=== PATIENT | male | born 2000 | race Caucasian/White ===

== ENCOUNTER 2020-10-04 05:43 | Inpatient (IN) ==
--- NOTE | 2020-10-04 06:13 | Emergency Department Note ---
History of Present Illness General Chief complaint: Hyperglycemia Stated complaint: NAUSEA/VOMITING/HYPERGLYCEMIA Time Seen by Provider: 10/04/20 06:00 History of Present Illness Maximum Pain Intensity: 4 This is a 20-year-old type I diabetic that presents to the emergency department via ambulance with complaints of "nausea, vomiting, hyperglycemia ". The patient notes that he has been without insulin for the past 2 days. He states that the reason for this is secondary to issues with his insurance. He notes that last evening he was feeling okay but then began with vomiting. He notes that around 11 PM his first episode of vomiting occurred and then since then he has had 6 more episodes. In route BSG reported was 368. He was also given IV Zofran in route. Patient notes some cramping-like discomfort in the epigastric region secondary to vomiting. Patient denies any chest pain. He does feel mildly short of breath. No fevers or chills. Home Medications Medication Instructions Recorded Confirmed Type insulin lispro [Humalog U-100 See Rx Instructions .ROUTE .COMPLEX 11/16/19 10/04/20 History Insulin] Allergies Allergy/AdvReac Type Severity Reaction Status Date / Time No Known Allergies Allergy Mild Verified 10/04/20 08:02 Past Med/Surg History Medical History Diabetes type I Surgical History History of endoscopy Family History Grandfather (Maternal) Heart disease Hypertension Mother Multiple sclerosis Social History Smoking Status: Never smoker Tobacco Type: Smokeless Tobacco (Dip or Chew) Hx Alcohol Use: Yes (2 drinks/month) Preferred Language: [place] current occupational status: employed Feels Safe at Home: Yes Review of Systems A total of 10 systems reviewed and were otherwise negative Physical Exam Vital Signs Vital Signs - 24 hr 10/04/20 05:48 10/04/20 05:49 10/04/20 05:51 Temperature 36.6 C Temperature Source Oral Pulse Rate 126 H 131 H 125 H Pulse Rate [Apical] Pulse Rate from SpO2 Sensor 126 H 127 H Pulse Rhythm Regular Pulse Rhythm [Apical] Pulse Strength Normal Pulse Strength [Apical] Respiratory Rate 26 H 22 28 H Respiratory Effort / Characteristics Non-Labored Spontaneous Respiratory Depth Normal Respiratory Pattern Regular Blood Pressure 150/101 H 150/101 H Blood Pressure [Right Arm] Blood Pressure Mean 117 117 Blood Pressure Mean [Right Arm] Blood Pressure Position Lying Blood Pressure Position [Right Arm] Pulse Oximetry 99 98 100 Oxygen Delivery Method Room Air Sepsis Recent Fever Within 48 Hours No Sepsis New/Unexplained Change in Mental Status No Sepsis Action Taken by Nursing No Action Required 10/04/20 06:00 10/04/20 06:15 10/04/20 06:30 Temperature 36.6 C Temperature Source Oral Pulse Rate 135 H 131 H 134 H Pulse Rate [Apical] 131 H Pulse Rate from SpO2 Sensor 134 H Pulse Rhythm Regular Pulse Rhythm [Apical] Regular Pulse Strength Pulse Strength [Apical] Normal Respiratory Rate 28 H 22 26 H Respiratory Effort / Characteristics Spontaneous Respiratory Depth Normal Respiratory Pattern Rapid/Deep Blood Pressure Blood Pressure [Right Arm] 150/101 H Blood Pressure Mean Blood Pressure Mean [Right Arm] 117 Blood Pressure Position Blood Pressure Position [Right Arm] Lying Pulse Oximetry 98 99 99 Oxygen Delivery Method Room Air Room Air Sepsis Recent Fever Within 48 Hours Sepsis New/Unexplained Change in Mental Status Sepsis Action Taken by Nursing 10/04/20 06:36 10/04/20 07:00 10/04/20 08:01 Temperature Temperature Source Pulse Rate 137 H 150 H Pulse Rate [Apical] Pulse Rate from SpO2 Sensor 137 H 140 H Pulse Rhythm Pulse Rhythm [Apical] Pulse Strength Pulse Strength [Apical] Respiratory Rate 28 H 23 Respiratory Effort / Characteristics Respiratory Depth Respiratory Pattern Blood Pressure 140/72 Blood Pressure [Right Arm] Blood Pressure Mean 94 Blood Pressure Mean [Right Arm] Blood Pressure Position Blood Pressure Position [Right Arm] Pulse Oximetry 98 98 Oxygen Delivery Method Sepsis Recent Fever Within 48 Hours Sepsis New/Unexplained Change in Mental Status Sepsis Action Taken by Nursing 10/04/20 08:22 10/04/20 08:27 10/04/20 08:30 Temperature Temperature Source Pulse Rate 142 H 140 H 141 H Pulse Rate [Apical] Pulse Rate from SpO2 Sensor 142 H 140 H Pulse Rhythm Pulse Rhythm [Apical] Pulse Strength Pulse Strength [Apical] Respiratory Rate 27 H 24 28 H Respiratory Effort / Characteristics Respiratory Depth Respiratory Pattern Blood Pressure 153/90 H 154/86 H 148/102 H Blood Pressure [Right Arm] Blood Pressure Mean 111 108 117 Blood Pressure Mean [Right Arm] Blood Pressure Position Blood Pressure Position [Right Arm] Pulse Oximetry 100 100 Oxygen Delivery Method Sepsis Recent Fever Within 48 Hours Sepsis New/Unexplained Change in Mental Status Sepsis Action Taken by Nursing 10/04/20 09:00 10/04/20 09:30 10/04/20 10:00 Temperature Temperature Source Pulse Rate 141 H 156 H 146 H Pulse Rate [Apical] Pulse Rate from SpO2 Sensor 141 H 154 H 147 H Pulse Rhythm Pulse Rhythm [Apical] Pulse Strength Pulse Strength [Apical] Respiratory Rate 31 H 30 H 28 H Respiratory Effort / Characteristics Respiratory Depth Respiratory Pattern Blood Pressure 152/84 H 132/94 114/91 Blood Pressure [Right Arm] Blood Pressure Mean 106 106 98 Blood Pressure Mean [Right Arm] Blood Pressure Position Blood Pressure Position [Right Arm] Pulse Oximetry 100 100 100 Oxygen Delivery Method Sepsis Recent Fever Within 48 Hours Sepsis New/Unexplained Change in Mental Status Sepsis Action Taken by Nursing 10/04/20 10:21 Temperature 36.6 C Temperature Source Oral Pulse Rate 146 H Pulse Rate [Apical] Pulse Rate from SpO2 Sensor Pulse Rhythm Pulse Rhythm [Apical] Pulse Strength Pulse Strength [Apical] Respiratory Rate 28 H Respiratory Effort / Characteristics Respiratory Depth Respiratory Pattern Blood Pressure 114/91 Blood Pressure [Right Arm] Blood Pressure Mean Blood Pressure Mean [Right Arm] Blood Pressure Position Blood Pressure Position [Right Arm] Pulse Oximetry 100 Oxygen Delivery Method Room Air Sepsis Recent Fever Within 48 Hours Sepsis New/Unexplained Change in Mental Status Sepsis Action Taken by Nursing VITAL SIGNS - Vital signs and nursing notes were reviewed. Tachycardic, otherwise stable. GENERAL -20-year-old male appearing his stated age who is in no acute distress but does have an increased respiratory rate and appears dehydrated. Communicates well with provider and answers questions appropriately. SKIN - Without rashes. No meningeal or petechial rash. HEAD - NC/AT. EYES - PERRL with EOMI bilaterally. Sclera anicteric. EARS - No deformities of external structures noted on gross examination bila terally. NOSE - Midline and without cyanosis. No epistaxis or purulent drainage noted. MOUTH/OROPHARYNX - Without perioral cyanosis. NECK - Neck with FROM. No nuchal rigidity. LUNGS - Chest wall symmetric without accessory muscle use, intercostals retractions, or central cyanosis. Mildly increased rate of breathing noted. Normal vesicular breath sounds CTA B/L. No wheezes, rales, or rhonchi appreciated. CARDIAC -tachycardic with S1/S2. No murmur, rubs, or gallops appreciated. ABDOMEN - Abdominal contour normal without pulsations or visible masses. BS normoactive all four quadrants. No tenderness, palpable masses, hepatosplenomegaly, or ascites noted. EXTREMITIES - No clubbing or peripheral cyanosis. No pretibial edema present. +5/5 strength noted in UE/LE bilaterally. NEUROLOGIC - Cranial nerves II through XII grossly intact. PSYCH - A&O, and cooperates fully with examiner. Pt is very pleasant and interacts well with examiner. Course Administered Medications Insulin Human Regular 250 (units/ Sodium Chloride) 250 mls @ 6.4 mls/hr IV .Q24H PA; Protocol Stop: 11/03/20 07:44 Last Titration: 10/04/20 09:45 Dose: 7.7 units/hr, 7.7 mls/hr Documented by: [id number] Cosigned by: [id number] Admin: 10/04/20 08:11 Dose: 6.4 units/hr, 6.4 mls/hr Documented by: [id number] Cosigned by: [id number] Parenteral Electrolytes (Normosol-R) 1,000 mls @ 125 mls/hr IV .Q8H PA Stop: 11/03/20 07:44 Last Admin: 10/04/20 08:10 Dose: 125 mls/hr Documented by: [id number] Discontinued Medications Sodium Chloride (Nss 1000ml) 1,000 mls @ 999 mls/hr IV .Q1H1M PA Stop: 10/04/20 07:15 Last Infusion: 10/04/20 07:15 Dose: 0 mls/hr Documented by: [id number] Admin: 10/04/20 06:14 Dose: 999 mls/hr Documented by: [id number] Sodium Chloride (Nss 1000ml) 1,000 mls @ 999 mls/hr IV .Q1H1M PA Stop: 10/04/20 09:30 Last Infusion: 10/04/20 09:10 Dose: 0 mls/hr Documented by: [id number] Admin: 10/04/20 08:09 Dose: 999 mls/hr Documented by: [id number] Lactated Ringer's (Lr) 1,000 mls @ 999 mls/hr IV .Q1H1M ONE Stop: 10/04/20 09:59 Last Admin: 06/17/21 09:29 Dose: 999 mls/hr Documented by: [id number] Insulin Human Regular (Novolin-R Bolus From Bag) 6.4 units IV ONE ONE Stop: 10/04/20 08:16 Last Admin: 10/04/20 08:12 Dose: 6.4 units Documented by: [id number] Cosigned by: [id number] Miscellaneous (Insulin Protocol Goal Range ) 1 ea N/A ONE ONE Stop: 10/04/20 07:42 Last Admin: 10/04/20 10:02 Dose: Not Given Documented by: [id number] Ondansetron HCl (Ondansetron Inj 2 Mg/Ml 2 Ml Vial) 4 mg IV NOW STA Stop: 10/04/20 06:57 Last Admin: 10/04/20 07:12 Dose: 4 mg Documented by: [id number] Ondansetron HCl (Ondansetron Inj 2 Mg/Ml 2 Ml Vial) 4 mg IV NOW STA Stop: 10/04/20 08:17 Last Admin: 10/04/20 08:09 Dose: 4 mg Documented by: [id number] Sodium Bicarbonate (Sodium Bicarb 8.4% Inj 50 Meq/50 Ml Syr) 50 meq IV NOW STA Stop: 10/04/20 09:04 Last Admin: 10/04/20 09:25 Dose: 50 meq Documented by: [id number] Critical Care Time Total Critical Care Time: 75 I have personally spent greater than 75 minutes of critical care time in the direct management of this patient. This includes bedside care, interpretation of diagnostic studies, and testing, discussion with consultants, patient, and family members, and other required patient management activities. This 75 minutes is in excess of all separately billable procedures. Medical Decision Making Laboratory Data Result diagrams: 10/04/20 06:45 10/04/20 08:22 Lab Results 10/04/20 10/04/20 10/04/20 Range/Units 05:52 05:55 06:19 WBC (4.8-10.8) K/uL RBC (4.7-6.1) M/uL Hgb (14.0-18.0) g/dL Hct (42-52) % MCV (80-100) fL MCH (25-34) pg MCHC (32-36) g/dL RDW Std Deviation (36.4-46.3) fL RDW Coeff of Patti (11.5-14.5) % Plt Count (130-400) K/uL MPV (7.4-10.4) fL Immature Gran % (Auto) % Neut % (Auto) % Lymph % (Auto) % [place] % (Auto) % Eos % (Auto) % Baso % (Auto) % Neut # (Auto) (1.4-6.5) K/uL Lymph # (Auto) (1.2-3.4) K/uL [place] # (Auto) (0.11-0.59) K/uL Eos # (Auto) (0-0.5) K/uL Baso # (Auto) (0-0.2) K/uL Immature Gran # (Auto) (0.00-0.02) K/uL ABG pH (7.35-7.45) ABG pCO2 (35-46) mmHg ABG pO2 (80-95) mmHg ABG HCO3 (19-24) mmol/L ABG O2 Saturation (90-95) % ABG Base Excess (-9-1.8) mEq/L Andrade Test (Pos) VBG pH (7.36-7.41) VBG pCO2 (38-50) mmHg VBG pO2 mmHg VBG HCO3 mmol/L VBG O2 Saturation % VBG Base Excess mEq/L Barometric Pressure mm/Hg Oxygen Given Sodium (136-145) mmol/L Potassium (3.5-5.1) mmol/L Chloride (98-107) mmol/L Carbon Dioxide (21-32) mmol/L Anion Gap (3-11) BUN (7-18) mg/dl Creatinine (0.6-1.4) mg/dl Est Cr Clr Drug Dosing ml/min Est GFR ( Amer) ml/min Est GFR (Non-Af Amer) ml/min BUN/Creatinine Ratio (10-20) Glucose (70-99) mg/dl POC Glucose 580 H* > 600 H* (70-99) mg/dl Lactate (0.4-2.0) mmol/L Calcium (8.5-10.1) mg/dl Phosphorus (2.5-4.9) mg/dl Magnesium (1.8-2.4) mg/dl Total Bilirubin (0.2-1) mg/dl AST (15-37) U/L ALT (12-78) U/L Alkaline Phosphatase (45-117) U/L Total Protein (6.4-8.2) gm/dl Albumin (3.4-5.0) gm/dl Globulin (2.5-4.0) gm/dl Albumin/Globulin Ratio (0.9-2) Lipase (73-393) U/L Beta-Hydroxybutyric Acd (0.2-2.81) mg/dl Procalcitonin (0-0.5) ng/ml Specimen Hemolysis Urine Color Urine Appearance (Clear) Urine pH (4.5-7.5) Ur Specific [place] (1.000-1.030) Urine Protein (Negative) Urine Glucose (UA) (Negative) Urine Ketones (Negative) Urine Blood (Negative) Urine Nitrite (Negative) Urine Bilirubin (Negative) Urine Urobilinogen (Negative) Ur Leukocyte Esterase (Negative) COVID-19 Eval Order Covid19 at [facility] SARS-CoV-2 (PCR) (Negative) 10/04/20 10/04/20 10/04/20 Range/Units 06:19 06:45 06:45 WBC 13.25 H (4.8-10.8) K/uL RBC 4.27 L (4.7-6.1) M/uL Hgb 14.9 (14.0-18.0) g/dL Hct 44.8 (42-52) % MCV 104.9 H (80-100) fL MCH 34.9 H (25-34) pg MCHC 33.3 (32-36) g/dL RDW Std Deviation 51.1 H (36.4-46.3) fL RDW Coeff of Patti 13.3 (11.5-14.5) % Plt Count 375 (130-400) K/uL MPV 10.8 H (7.4-10.4) fL Immature Gran % (Auto) 0.4 % Neut % (Auto) 86.5 % Lymph % (Auto) 9.1 % [place] % (Auto) 3.8 % Eos % (Auto) 0.0 % Baso % (Auto) 0.2 % Neut # (Auto) 11.47 H (1.4-6.5) K/uL Lymph # (Auto) 1.20 (1.2-3.4) K/uL [place] # (Auto) 0.51 (0.11-0.59) K/uL Eos # (Auto) 0.00 (0-0.5) K/uL Baso # (Auto) 0.02 (0-0.2) K/uL Immature Gran # (Auto) 0.05 H (0.00-0.02) K/uL ABG pH (7.35-7.45) ABG pCO2 (35-46) mmHg ABG pO2 (80-95) mmHg ABG HCO3 (19-24) mmol/L ABG O2 Saturation (90-95) % ABG Base Excess (-9-1.8) mEq/L Andrade Test (Pos) VBG pH (7.36-7.41) VBG pCO2 (38-50) mmHg VBG pO2 mmHg VBG HCO3 mmol/L VBG O2 Saturation % VBG Base Excess mEq/L Barometric Pressure mm/Hg Oxygen Given Sodium 134 L (136-145) mmol/L Potassium 5.8 H (3.5-5.1) mmol/L Chloride 102 (98-107) mmol/L Carbon Dioxide 4 L* (21-32) mmol/L Anion Gap 27.0 H (3-11) BUN 21 H (7-18) mg/dl Creatinine 1.22 (0.6-1.4) mg/dl Est Cr Clr Drug Dosing 81.8 ml/min Est GFR ( Amer) 97.6 ml/min Est GFR (Non-Af Amer) 84.2 ml/min BUN/Creatinine Ratio 17.5 (10-20) Glucose 620 H* (70-99) mg/dl POC Glucose (70-99) mg/dl Lactate (0.4-2.0) mmol/L Calcium 7.5 L (8.5-10.1) mg/dl Phosphorus (2.5-4.9) mg/dl Magnesium 2.2 (1.8-2.4) mg/dl Total Bilirubin 0.6 (0.2-1) mg/dl AST 112 H (15-37) U/L ALT 107 H (12-78) U/L Alkaline Phosphatase 110 (45-117) U/L Total Protein 7.0 (6.4-8.2) gm/dl Albumin 3.7 (3.4-5.0) gm/dl Globulin 3.3 (2.5-4.0) gm/dl Albumin/Globulin Ratio 1.1 (0.9-2) Lipase 58 L (73-393) U/L Beta-Hydroxybutyric Acd (0.2-2.81) mg/dl Procalcitonin (0-0.5) ng/ml Specimen Hemolysis Urine Color Urine Appearance (Clear) Urine pH (4.5-7.5) Ur Specific [place] (1.000-1.030) Urine Protein (Negative) Urine Glucose (UA) (Negative) Urine Ketones (Negative) Urine Blood (Negative) Urine Nitrite (Negative) Urine Bilirubin (Negative) Urine Urobilinogen (Negative) Ur Leukocyte Esterase (Negative) COVID-19 Eval Order SARS-CoV-2 (PCR) NEGATIVE (Negative) 10/04/20 10/04/20 10/04/20 Range/Units 06:45 06:45 06:45 WBC (4.8-10.8) K/uL RBC (4.7-6.1) M/uL Hgb (14.0-18.0) g/dL Hct (42-52) % MCV (80-100) fL MCH (25-34) pg MCHC (32-36) g/dL RDW Std Deviation (36.4-46.3) fL RDW Coeff of Patti (11.5-14.5) % Plt Count (130-400) K/uL MPV (7.4-10.4) fL Immature Gran % (Auto) % Neut % (Auto) % Lymph % (Auto) % [place] % (Auto) % Eos % (Auto) % Baso % (Auto) % Neut # (Auto) (1.4-6.5) K/uL Lymph # (Auto) (1.2-3.4) K/uL [place] # (Auto) (0.11-0.59) K/uL Eos # (Auto) (0-0.5) K/uL Baso # (Auto) (0-0.2) K/uL Immature Gran # (Auto) (0.00-0.02) K/uL ABG pH (7.35-7.45) ABG pCO2 (35-46) mmHg ABG pO2 (80-95) mmHg ABG HCO3 (19-24) mmol/L ABG O2 Saturation (90-95) % ABG Base Excess (-9-1.8) mEq/L Andrade Test (Pos) VBG pH 7.09 L (7.36-7.41) VBG pCO2 22 L (38-50) mmHg VBG pO2 47 mmHg VBG HCO3 7 mmol/L VBG O2 Saturation 70.8 % VBG Base Excess -21.6 mEq/L Barometric Pressure 733.3 mm/Hg Oxygen Given Sodium (136-145) mmol/L Potassium (3.5-5.1) mmol/L Chloride (98-107) mmol/L Carbon Dioxide (21-32) mmol/L Anion Gap (3-11) BUN (7-18) mg/dl Creatinine (0.6-1.4) mg/dl Est Cr Clr Drug Dosing ml/min Est GFR ( Amer) ml/min Est GFR (Non-Af Amer) ml/min BUN/Creatinine Ratio (10-20) Glucose (70-99) mg/dl POC Glucose (70-99) mg/dl Lactate 2.4 H* (0.4-2.0) mmol/L Calcium (8.5-10.1) mg/dl Phosphorus (2.5-4.9) mg/dl Magnesium (1.8-2.4) mg/dl Total Bilirubin (0.2-1) mg/dl AST (15-37) U/L ALT (12-78) U/L Alkaline Phosphatase (45-117) U/L Total Protein (6.4-8.2) gm/dl Albumin (3.4-5.0) gm/dl Globulin (2.5-4.0) gm/dl Albumin/Globulin Ratio (0.9-2) Lipase (73-393) U/L Beta-Hydroxybutyric Acd (0.2-2.81) mg/dl Procalcitonin 0.09 (0-0.5) ng/ml Specimen Hemolysis Urine Color Urine Appearance (Clear) Urine pH (4.5-7.5) Ur Specific [place] (1.000-1.030) Urine Protein (Negative) Urine Glucose (UA) (Negative) Urine Ketones (Negative) Urine Blood (Negative) Urine Nitrite (Negative) Urine Bilirubin (Negative) Urine Urobilinogen (Negative) Ur Leukocyte Esterase (Negative) COVID-19 Eval Order SARS-CoV-2 (PCR) (Negative) 10/04/20 10/04/20 10/04/20 Range/Units 06:59 08:22 08:22 WBC (4.8-10.8) K/uL RBC (4.7-6.1) M/uL Hgb (14.0-18.0) g/dL Hct (42-52) % MCV (80-100) fL MCH (25-34) pg MCHC (32-36) g/dL RDW Std Deviation (36.4-46.3) fL RDW Coeff of Patti (11.5-14.5) % Plt Count (130-400) K/uL MPV (7.4-10.4) fL Immature Gran % (Auto) % Neut % (Auto) % Lymph % (Auto) % [place] % (Auto) % Eos % (Auto) % Baso % (Auto) % Neut # (Auto) (1.4-6.5) K/uL Lymph # (Auto) (1.2-3.4) K/uL [place] # (Auto) (0.11-0.59) K/uL Eos # (Auto) (0-0.5) K/uL Baso # (Auto) (0-0.2) K/uL Immature Gran # (Auto) (0.00-0.02) K/uL ABG pH 7.05 L* (7.35-7.45) ABG pCO2 12 L (35-46) mmHg ABG pO2 132 H (80-95) mmHg ABG HCO3 3 L (19-24) mmol/L ABG O2 Saturation 98.1 H (90-95) % ABG Base Excess -25.1 L (-9-1.8) mEq/L Andrade Test Pos (Pos) VBG pH (7.36-7.41) VBG pCO2 (38-50) mmHg VBG pO2 mmHg VBG HCO3 mmol/L VBG O2 Saturation % VBG Base Excess mEq/L Barometric Pressure 733.8 mm/Hg Oxygen Given RA Sodium 138 (136-145) mmol/L Potassium 4.9 D (3.5-5.1) mmol/L Chloride 108 H (98-107) mmol/L Carbon Dioxide < 1 L* (21-32) mmol/L Anion Gap TNP (3-11) BUN 24 H (7-18) mg/dl Creatinine 1.13 (0.6-1.4) mg/dl Est Cr Clr Drug Dosing 88.3 ml/min Est GFR ( Amer) 107.1 ml/min Est GFR (Non-Af Amer) 92.4 ml/min BUN/Creatinine Ratio 21.4 H (10-20) Glucose 613 H* (70-99) mg/dl POC Glucose (70-99) mg/dl Lactate (0.4-2.0) mmol/L Calcium 7.5 L (8.5-10.1) mg/dl Phosphorus 4.8 (2.5-4.9) mg/dl Magnesium (1.8-2.4) mg/dl Total Bilirubin (0.2-1) mg/dl AST (15-37) U/L ALT (12-78) U/L Alkaline Phosphatase (45-117) U/L Total Protein (6.4-8.2) gm/dl Albumin (3.4-5.0) gm/dl Globulin (2.5-4.0) gm/dl Albumin/Globulin Ratio (0.9-2) Lipase (73-393) U/L Beta-Hydroxybutyric Acd Cancelled (0.2-2.81) mg/dl Procalcitonin (0-0.5) ng/ml Specimen Hemolysis Urine Color Yellow Urine Appearance Clear (Clear) Urine pH 5.0 (4.5-7.5) Ur Specific [place] 1.027 (1.000-1.030) Urine Protein Negative (Negative) Urine Glucose (UA) 3+ H (Negative) Urine Ketones 4+ H (Negative) Urine Blood Negative (Negative) Urine Nitrite Negative (Negative) Urine Bilirubin Negative (Negative) Urine Urobilinogen Negative (Negative) Ur Leukocyte Esterase Negative (Negative) COVID-19 Eval Order SARS-CoV-2 (PCR) (Negative) 10/04/20 Range/Units 09:12 WBC (4.8-10.8) K/uL RBC (4.7-6.1) M/uL Hgb (14.0-18.0) g/dL Hct (42-52) % MCV (80-100) fL MCH (25-34) pg MCHC (32-36) g/dL RDW Std Deviation (36.4-46.3) fL RDW Coeff of Patti (11.5-14.5) % Plt Count (130-400) K/uL MPV (7.4-10.4) fL Immature Gran % (Auto) % Neut % (Auto) % Lymph % (Auto) % [place] % (Auto) % Eos % (Auto) % Baso % (Auto) % Neut # (Auto) (1.4-6.5) K/uL Lymph # (Auto) (1.2-3.4) K/uL [place] # (Auto) (0.11-0.59) K/uL Eos # (Auto) (0-0.5) K/uL Baso # (Auto) (0-0.2) K/uL Immature Gran # (Auto) (0.00-0.02) K/uL ABG pH (7.35-7.45) ABG pCO2 (35-46) mmHg ABG pO2 (80-95) mmHg ABG HCO3 (19-24) mmol/L ABG O2 Saturation (90-95) % ABG Base Excess (-9-1.8) mEq/L Andrade Test (Pos) VBG pH (7.36-7.41) VBG pCO2 (38-50) mmHg VBG pO2 mmHg VBG HCO3 mmol/L VBG O2 Saturation % VBG Base Excess mEq/L Barometric Pressure mm/Hg Oxygen Given Sodium (136-145) mmol/L Potassium (3.5-5.1) mmol/L Chloride (98-107) mmol/L Carbon Dioxide (21-32) mmol/L Anion Gap (3-11) BUN (7-18) mg/dl Creatinine (0.6-1.4) mg/dl Est Cr Clr Drug Dosing ml/min Est GFR ( Amer) ml/min Est GFR (Non-Af Amer) ml/min BUN/Creatinine Ratio (10-20) Glucose (70-99) mg/dl POC Glucose 423 H* (70-99) mg/dl Lactate (0.4-2.0) mmol/L Calcium (8.5-10.1) mg/dl Phosphorus (2.5-4.9) mg/dl Magnesium (1.8-2.4) mg/dl Total Bilirubin (0.2-1) mg/dl AST (15-37) U/L ALT (12-78) U/L Alkaline Phosphatase (45-117) U/L Total Protein (6.4-8.2) gm/dl Albumin (3.4-5.0) gm/dl Globulin (2.5-4.0) gm/dl Albumin/Globulin Ratio (0.9-2) Lipase (73-393) U/L Beta-Hydroxybutyric Acd (0.2-2.81) mg/dl Procalcitonin (0-0.5) ng/ml Specimen Hemolysis Urine Color Urine Appearance (Clear) Urine pH (4.5-7.5) Ur Specific [place] (1.000-1.030) Urine Protein (Negative) Urine Glucose (UA) (Negative) Urine Ketones (Negative) Urine Blood (Negative) Urine Nitrite (Negative) Urine Bilirubin (Negative) Urine Urobilinogen (Negative) Ur Leukocyte Esterase (Negative) COVID-19 Eval Order SARS-CoV-2 (PCR) (Negative) [facility] Narrative Patient was seen and evaluated as above in room A03. Review was performed of n meñoing notes and vital signs. I did review pertinent previous visits and patient history. After obtaining a thorough history and physical examination the above work up was performed. Patient presents to us today with nausea, vomiting and elevated blood sugar with history of type 1 diabetes. He has not had insulin for 2 days. The patient notes that he has been without insulin secondary to troubles with prior authorization with his insurance company. Options of care were discussed with the patient. IV access established. Labs were drawn. IV fluids were ordered. He did receive 1 L prehospital of normal saline intravenously. An additional liter was ordered here during the work-up. Case discussed with the attending physician that also evaluated the patient. Leukocytosis 13.25 noted without significant anemia. Patient does have significant metabolic disturbances. The patient has a carbon dioxide of 4 with an anion gap of 27. Hyperkalemia noted. Glucose in the 600s. Lactate elevated at 2.4. Hypocalcemia 7.5. LFT elevation noted. Pro-Ji within normal range. Urinalysis reveals 4+ ketones and 3+ glucose. Covid testing negative. EKG was also obtained on arrival and revealed sinus tachycardia rate of [address] elevation noted. QTc 466. QRS 86. After the second liter fluid a third liter of normal saline was started and at that point the the insulin bolus/drip was initiated. I discussed presentation with the hospitalist as well as the commercial account officer. I spoke with Dr. De Leon. Repeat BMP was ordered as well as fourth liter of fluids recommended by commercial account officer but it was recommended to switch to LR or Normosol. LR was ordered. I did call him back with a repeat BMP and at that point the patient had a carbon dioxide less than 1. At that point it was recommended to give an amp of bicarb. This was ordered. Did call and speak to pharmacy to verify this. Patient was producing urine without difficulty. Patient will be admitted to the ICU for further evaluation and management. Please refer to further documentation regarding his stay for treatment of his DKA. Case was discussed with the attending physician. An order was placed for continuous cardiac monitoring. The monitor shows a rate of 146 sinus tachycardia. GCS: 15 In the evaluation and treatment of this patient the following differential diagnoses were entertained: DKA, infection, electrolyte disturbance, NV, PE, COVID-19, among others. Impression & Plan DKA (diabetic ketoacidoses) Discharge Plan Visit Data Chief Complaint: Hyperglycemia Stated Complaint: NAUSEA/VOMITING/HYPERGLYCEMIA ED Provider: Leila Berger ED Midlevel Provider: Phill Bales Discharge Problem: DKA (diabetic ketoacidoses) Patient Disposition: Home - Self-Care Condition: Good Discharge Instructions Interventions: ED Discharge Assessment Last Done: 10/04/20 10:21 Forms Stand Alone Forms: [facility], [facility] Emergency Department, Important Visit Information Prescriptions Prescriptions: No Action insulin lispro [Humalog U-100 Insulin] 100 unit/mL solution See Rx Instructions .ROUTE .COMPLEX RF: 0 Referrals Referrals: Kashmir Herr DO [Primary Care Provider] -
[2020-10-04] MEDS ORDERED: SODIUM CHLORIDE 0.9% 1000ML 1,000 ML IV SCH ×2 (06:15→08:30)
[2020-10-04] MEDS ORDERED: ONDANSETRON INJ 2 MG/ML 2 ML VIAL IV STA ×2 (06:56→08:16)
[2020-10-04 06:58] LABS: Basophils # (auto) 0.02 K/uL (0-0.2); Basophils % (auto) 0.2 %; Hematocrit (blood only) 44.8 % (42-52); Hemoglobin 14.9 g/dL (14.0-18.0); Immature Granulocytes # (auto) 0.05 K/uL (0.00-0.02); Immature Granulocytes % (auto) 0.4 %; Lymphocytes % (auto) 9.1 %; Mean Corpuscular Hemoglobin 34.9 pg (25-34); Mean Corpuscular Hgb Conc 33.3 g/dL (32-36); Mean Corpuscular Volume 104.9 fL (80-100); Mean Platelet Volume 10.8 fL (7.4-10.4); Monocytes # (auto) 0.51 K/uL (0.11-0.59); Monocytes % (auto) 3.8 %; Neutrophils # (auto) 11.47 K/uL (1.4-6.5); Neutrophils % (auto) 86.5 %; Platelet Count 375 K/uL (130-400); RDW Coefficient of Variation 13.3 % (11.5-14.5); RDW Standard Deviation 51.1 fL (36.4-46.3); Red Blood Count 4.27 M/uL (4.7-6.1); White Blood Count 13.25 K/uL (4.8-10.8)
[2020-10-04 07:07] LABS: Base Excess VBG -21.6 mEq/L; Oxygen Saturation VBG 70.8 %; pH VBG 7.09 (7.36-7.41)
[2020-10-04 07:35] LABS: Albumin Globulin Ratio 1.1 (0.9-2); Albumin Level 3.7 gm/dl (3.4-5.0); BUN Creatinine Ratio 17.5 (10-20); Bilirubin,Total 0.6 mg/dl (0.2-1); Calcium 7.5 mg/dl (8.5-10.1); Creatinine Clr Calc Pharmacy 81.8 ml/min; Est GFR (African American) 97.6 ml/min; Est GFR (Non-African American) 84.2 ml/min; Globulin 3.3 gm/dl (2.5-4.0); Magnesium 2.2 mg/dl (1.8-2.4); Potassium 5.8 mmol/L (3.5-5.1)
[2020-10-04] MEDS ORDERED: INSULIN PROTOCOL GOAL RANGE ONE (07:41)
[2020-10-04] MEDS ORDERED: NORMOSOL-R 1,000 ML IV SCH (07:45)
[2020-10-04 07:47] LABS: Appearance Urine Clear (Clear); Bilirubin Urine Negative (Negative); Blood Urine Negative (Negative); Color Urine Yellow; Glucose Urine UA 3+ (Negative); Ketones Urine 4+ (Negative); Leukocyte Esterase Urine Negative (Negative); Nitrite Urine Negative (Negative); Protein Urine Negative (Negative); Specific Gravity Urine 1.027 (1.000-1.030); Urobilinogen Urine Negative (Negative)
[2020-10-04] MEDS: INSULIN REGULAR 250 UNITS in SODIUM CHLORIDE 0.9% 247.5 ML IV SCH (08:11)
[2020-10-04] MEDS ORDERED: NovoLIN-R BOLUS FROM BAG IV ONE (08:15)
[2020-10-04 08:38] LABS: Base Excess ABG -25.1 mEq/L (-9-1.8); HCO3 ABG 3 mmol/L (19-24); Oxygen Saturation ABG 98.1 % (90-95); PCO2 ABG 12 mmHg (35-46); PO2 ABG 132 mmHg (80-95)
[2020-10-04 08:41] LABS: Allen Test Pos (Pos); pH ABG 7.05 (7.35-7.45)
[2020-10-04 08:52] LABS: BUN Creatinine Ratio 21.4 (10-20); Blood Urea Nitrogen 24 mg/dl (7-18); Calcium 7.5 mg/dl (8.5-10.1); Carbon Dioxide < 1 mmol/L (21-32); Chloride 108 mmol/L (98-107); Creatinine Clr Calc Pharmacy 88.3 ml/min; Est GFR (African American) 107.1 ml/min; Est GFR (Non-African American) 92.4 ml/min; Glucose 613 mg/dl (70-99); Phosphorus 4.8 mg/dl (2.5-4.9); Sodium 138 mmol/L (136-145)
[2020-10-04 08:53] LABS: Potassium 4.9 mmol/L (3.5-5.1)
[2020-10-04] MEDS ORDERED: LACTATED RINGER'S 1,000 ML IV ONE (08:59)
[2020-10-04] MEDS ORDERED: SODIUM BICARB 8.4% INJ 50 MEQ/50 ML SYR IV STA (09:03)
[2020-10-04] MEDS ORDERED: DKA GOAL RANGE 150-250 mg/dl ONE (09:26)
--- NOTE | 2020-10-04 09:49 | History & Physical Report ---
Date of Service October 04, 2020 Assessment & Plan (1) DKA (diabetic ketoacidoses): Likely related to no insulin x 2 days due to issue with insurance. - Admit to ICU and consult critical care - ED provider spoke with covering physician - Cultures pending from ED although clinical picture seems less consistent with infection - Aggressive fluid resuscitation started by ED and continued in consultation with critical care - defer to their recommendations - Receiving insulin drip at 0.1 unit/kg --> 6.4 units/hr. Continue to monitor glucose for appropriate response - Follow electrolytes closely with repletion as needed - Follow VBG per protocol - receiving one amp of bicarb in ED (2) Diabetes type I: See plan for #1 - Will need to eventually work with case management on ensuring appropriate insurance coverage for insulin management at discharge (3) Hepatomegaly: Being monitored as an outpatient - LFTs are slightly elevated from baseline. Will continue to monitor. Pt seen and reviewed with attending physician, Dr. Balderas. Plan of care discussed and as outlined above. Appreciate critical care's assistance with management. Pt's mother updated at the bedside - all questions answered. Diana Sanders PA-C History of Present Illness Chief Complaint: nausea and vomiting Primary Care Provider: Kashmir Herr DO This is a 20 y/o male with a PMH of type 1 DM who presented to the ED this morning via EMS after he developed nausea, vomiting, and shortness breath overnight as well as noted rising blood sugars. History obtained from the patient, his mother at the bedside, and review of the medical record. Pt was diagnosed with Type 1 DM around the age of 1. At least one prior episode of DKA requiring hospitalization around the age of 6 or 7. He was using an insulin pump for management previously but it has been malfunctioning recently so he has been using traditional injection therapy, primarily with short-acting insulin from his description. He was previously on Lantus 27 units QHS prior to using the pump but he has not resumed this since the pump stopped working. Over the past few days, his PCP office has been working with glycemic pharmacy to get a prior authorization for his insulin therapy. However, he reports that he ran out of insulin completely with no insulin use for the past two days. Yesterday, he saw his PCP for a routine physical and had no specific complaints. Labs yesterday afternoon showed a glucose of 134, BUN 21, creatinine 0.8, and A1c of 8.9. He reports feeling okay last evening. Overnight, he developed nausea, vomiting, shortness of breath, polydipsia, and fatigue. He woke his mother up around 4:50 am to tell her that he was ill and needed to go to the ED. Glucose at that time was around 300. By the time EMS arrived, sugar was in the 380s, and on initial presentation in the ED sugar was >600. He received one liter of NSS and unspecified dose of Zofran en route to the ED. In the ED, he continued with N/V so he was given Zofran 4 mg x 2 more doses with some improvement. He has since received an initial 2 L of NSS in the ED and had Normosol-R running at 125 ml/hr. He currently feels short of breath ("like I need to breathe fast") but denies chest tightness or chest pain. +fatigue, palpitations. Nausea has improved and he was eating ice chips without worsening. He reports feeling "very thirsty" at present but not hungry. Denies TIMMONS, dizziness, visual changes. Allergies Allergy/AdvReac Type Severity Reaction Status Date / Time No Known Allergies Allergy Mild Verified 10/04/20 08:02 Home Medications Medication Instructions Recorded Confirmed Type insulin lispro [Humalog U-100 See Rx Instructions .ROUTE .COMPLEX 11/16/19 10/04/20 History Insulin] Past Med/Surg History Medical History Diabetes type I Surgical History History of endoscopy Family History Grandfather (Maternal) Heart disease Hypertension Mother Multiple sclerosis Social History Smoking Status: Never smoker Tobacco Type: Smokeless Tobacco (Dip or Chew) Hx Alcohol Use: No Hx Substance Use: No Preferred Language: Chadian Communication Ability: 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 Beliefs That Will Affect Care: None Current Living Situation: Family current occupational status: employed Other Information That Helps Us Care for You: No Feels Safe at Home: Yes Safety Concerns: Feels Safe At This Time Assistive Devices: None Review of Systems Review of Systems: All systems reviewed & are unremarkable except as noted in HPI & below Constitutional: + fatigue; no fever, no chills and no increased appetite Eyes: no diplopia and no worsening vision Ear, Nose, Mouth, Throat: no nasal congestion, no nasal discharge and no sore throat Respiratory: + dyspnea; no cough, no hemoptysis and no wheezing Cardiovascular: + palpitations; no chest pain, no lightheadedness, no syncope and no edema Gastrointestinal: + nausea and + vomiting; no abdominal pain, no diarrhea/loose stools and no blood in stools Genitourinary: no dysuria, no urinary frequency and no hematuria Musculoskeletal: no back pain and no neck pain Integumentary: no rash and no urticaria Neurologic: + generalized weakness; no tingling, no numbness, no dizziness and no headache(s) Physical Exam Constitutional: WD/WN, vitals as above + ill appearing; no altered mental status Eyes: PERRL, conjunctivae normal, anicteric sclerae ENMT: external ear and nose normal, oropharynx normal Neck: trachea midline Respiratory: + tachypneic Auscultation: lungs clear to auscultation bilaterally; no rales, no rhonchi and no wheezes Cardiovascular: Rate/Rhythm: regular rhythm and + tachycardic Heart Sounds: no gallop, no murmur and no cardiac rub Gastrointestinal (Abdomen): Inspection/Auscultation: normal bowel sounds; abdomen not distended Percussion/Palpation: abdomen soft; abdomen nontender Musculoskeletal: Head/Neck/Chest: normocephalic, head atraumatic and neck supple Skin: no rashes, warm and dry Neurologic: moves all extremities; no focal motor deficits and not confused Psychiatric: Orientation: alert and oriented x 3 Affect: + anxious affect Results & Data Results & Data ([facility]) Vital Signs (Past 12 Hours) Vital Signs Temp Pulse Pulse Resp BP BP Pulse Ox 10/04/20 09:00 141 H 31 H 152/84 H 100 10/04/20 08:30 141 H 28 H 148/102 H 100 10/04/20 08:27 140 H 24 154/86 H 10/04/20 08:22 142 H 27 H 153/90 H 100 10/04/20 08:01 150 H 23 10/04/20 07:00 98 10/04/20 06:36 137 H 28 H 140/72 98 10/04/20 06:30 134 H 26 H 99 10/04/20 06:15 131 H 22 99 10/04/20 06:00 36.6 C 135 H 131 H 28 H 150/101 H 98 10/04/20 05:51 125 H 28 H 100 10/04/20 05:49 36.6 C 131 H 22 150/101 H 98 10/04/20 05:48 126 H 26 H 150/101 H 99 Laboratory Results Laboratory Results - last 24 hr 10/04/20 10/04/20 10/04/20 05:52 05:55 06:19 WBC RBC Hgb Hct MCV MCH MCHC RDW Std Deviation RDW Coeff of Patti Plt Count MPV Immature Gran % (Auto) Neut % (Auto) Lymph % (Auto) [place] % (Auto) Eos % (Auto) Baso % (Auto) Neut # (Auto) Lymph # (Auto) [place] # (Auto) Eos # (Auto) Baso # (Auto) Immature Gran # (Auto) ABG pH ABG pCO2 ABG pO2 ABG HCO3 ABG O2 Saturation ABG Base Excess Andrade Test VBG pH VBG pCO2 VBG pO2 VBG HCO3 VBG O2 Saturation VBG Base Excess Barometric Pressure Oxygen Given Sodium Potassium Chloride Carbon Dioxide Anion Gap BUN Creatinine Est Cr Clr Drug Dosing Est GFR ( Amer) Est GFR (Non-Af Amer) BUN/Creatinine Ratio Glucose POC Glucose 580 H* > 600 H* Lactate Calcium Phosphorus Magnesium Total Bilirubin AST ALT Alkaline Phosphatase Total Protein Albumin Globulin Albumin/Globulin Ratio Lipase Beta-Hydroxybutyric Acd Procalcitonin Specimen Hemolysis Urine Color Urine Appearance Urine pH Ur Specific [place] Urine Protein Urine Glucose (UA) Urine Ketones Urine Blood Urine Nitrite Urine Bilirubin Urine Urobilinogen Ur Leukocyte Esterase COVID-19 Eval Order Covid19 at [facility] SARS-CoV-2 (PCR) 10/04/20 10/04/20 10/04/20 06:19 06:45 06:45 WBC 13.25 H RBC 4.27 L Hgb 14.9 Hct 44.8 MCV 104.9 H MCH 34.9 H MCHC 33.3 RDW Std Deviation 51.1 H RDW Coeff of Patti 13.3 Plt Count 375 MPV 10.8 H Immature Gran % (Auto) 0.4 Neut % (Auto) 86.5 Lymph % (Auto) 9.1 [place] % (Auto) 3.8 Eos % (Auto) 0.0 Baso % (Auto) 0.2 Neut # (Auto) 11.47 H Lymph # (Auto) 1.20 [place] # (Auto) 0.51 Eos # (Auto) 0.00 Baso # (Auto) 0.02 Immature Gran # (Auto) 0.05 H ABG pH ABG pCO2 ABG pO2 ABG HCO3 ABG O2 Saturation ABG Base Excess Andrade Test VBG pH VBG pCO2 VBG pO2 VBG HCO3 VBG O2 Saturation VBG Base Excess Barometric Pressure Oxygen Given Sodium 134 L Potassium 5.8 H Chloride 102 Carbon Dioxide 4 L* Anion Gap 27.0 H BUN 21 H Creatinine 1.22 Est Cr Clr Drug Dosing 81.8 Est GFR ( Amer) 97.6 Est GFR (Non-Af Amer) 84.2 BUN/Creatinine Ratio 17.5 Glucose 620 H* POC Glucose Lactate Calcium 7.5 L Phosphorus Magnesium 2.2 Total Bilirubin 0.6 AST 112 H ALT 107 H Alkaline Phosphatase 110 Total Protein 7.0 Albumin 3.7 Globulin 3.3 Albumin/Globulin Ratio 1.1 Lipase 58 L Beta-Hydroxybutyric Acd Procalcitonin Specimen Hemolysis Urine Color Urine Appearance Urine pH Ur Specific [place] Urine Protein Urine Glucose (UA) Urine Ketones Urine Blood Urine Nitrite Urine Bilirubin Urine Urobilinogen Ur Leukocyte Esterase COVID-19 Eval Order SARS-CoV-2 (PCR) NEGATIVE 10/04/20 10/04/20 10/04/20 06:45 06:45 06:45 WBC RBC Hgb Hct MCV MCH MCHC RDW Std Deviation RDW Coeff of Patti Plt Count MPV Immature Gran % (Auto) Neut % (Auto) Lymph % (Auto) [place] % (Auto) Eos % (Auto) Baso % (Auto) Neut # (Auto) Lymph # (Auto) [place] # (Auto) Eos # (Auto) Baso # (Auto) Immature Gran # (Auto) ABG pH ABG pCO2 ABG pO2 ABG HCO3 ABG O2 Saturation ABG Base Excess Andrade Test VBG pH 7.09 L VBG pCO2 22 L VBG pO2 47 VBG HCO3 7 VBG O2 Saturation 70.8 VBG Base Excess -21.6 Barometric Pressure 733.3 Oxygen Given Sodium Potassium Chloride Carbon Dioxide Anion Gap BUN Creatinine Est Cr Clr Drug Dosing Est GFR ( Amer) Est GFR (Non-Af Amer) BUN/Creatinine Ratio Glucose POC Glucose Lactate 2.4 H* Calcium Phosphorus Magnesium Total Bilirubin AST ALT Alkaline Phosphatase Total Protein Albumin Globulin Albumin/Globulin Ratio Lipase Beta-Hydroxybutyric Acd Procalcitonin 0.09 Specimen Hemolysis Urine Color Urine Appearance Urine pH Ur Specific [place] Urine Protein Urine Glucose (UA) Urine Ketones Urine Blood Urine Nitrite Urine Bilirubin Urine Urobilinogen Ur Leukocyte Esterase COVID-19 Eval Order SARS-CoV-2 (PCR) 10/04/20 10/04/20 10/04/20 06:59 08:22 08:22 WBC RBC Hgb Hct MCV MCH MCHC RDW Std Deviation RDW Coeff of Patti Plt Count MPV Immature Gran % (Auto) Neut % (Auto) Lymph % (Auto) [place] % (Auto) Eos % (Auto) Baso % (Auto) Neut # (Auto) Lymph # (Auto) [place] # (Auto) Eos # (Auto) Baso # (Auto) Immature Gran # (Auto) ABG pH 7.05 L* ABG pCO2 12 L ABG pO2 132 H ABG HCO3 3 L ABG O2 Saturation 98.1 H ABG Base Excess -25.1 L Andrade Test Pos VBG pH VBG pCO2 VBG pO2 VBG HCO3 VBG O2 Saturation VBG Base Excess Barometric Pressure 733.8 Oxygen Given RA Sodium 138 Potassium 4.9 D Chloride 108 H Carbon Dioxide < 1 L* Anion Gap TNP BUN 24 H Creatinine 1.13 Est Cr Clr Drug Dosing 88.3 Est GFR ( Amer) 107.1 Est GFR (Non-Af Amer) 92.4 BUN/Creatinine Ratio 21.4 H Glucose 613 H* POC Glucose Lactate Calcium 7.5 L Phosphorus 4.8 Magnesium Total Bilirubin AST ALT Alkaline Phosphatase Total Protein Albumin Globulin Albumin/Globulin Ratio Lipase Beta-Hydroxybutyric Acd Cancelled Procalcitonin Specimen Hemolysis Urine Color Yellow Urine Appearance Clear Urine pH 5.0 Ur Specific [place] 1.027 Urine Protein Negative Urine Glucose (UA) 3+ H Urine Ketones 4+ H Urine Blood Negative Urine Nitrite Negative Urine Bilirubin Negative Urine Urobilinogen Negative Ur Leukocyte Esterase Negative COVID-19 Eval Order SARS-CoV-2 (PCR) 10/04/20 09:12 WBC RBC Hgb Hct MCV MCH MCHC RDW Std Deviation RDW Coeff of Patti Plt Count MPV Immature Gran % (Auto) Neut % (Auto) Lymph % (Auto) [place] % (Auto) Eos % (Auto) Baso % (Auto) Neut # (Auto) Lymph # (Auto) [place] # (Auto) Eos # (Auto) Baso # (Auto) Immature Gran # (Auto) ABG pH ABG pCO2 ABG pO2 ABG HCO3 ABG O2 Saturation ABG Base Excess Andrade Test VBG pH VBG pCO2 VBG pO2 VBG HCO3 VBG O2 Saturation VBG Base Excess Barometric Pressure Oxygen Given Sodium Potassium Chloride Carbon Dioxide Anion Gap BUN Creatinine Est Cr Clr Drug Dosing Est GFR ( Amer) Est GFR (Non-Af Amer) BUN/Creatinine Ratio Glucose POC Glucose 423 H* Lactate Calcium Phosphorus Magnesium Total Bilirubin AST ALT Alkaline Phosphatase Total Protein Albumin Globulin Albumin/Globulin Ratio Lipase Beta-Hydroxybutyric Acd Procalcitonin Specimen Hemolysis Urine Color Urine Appearance Urine pH Ur Specific [place] Urine Protein Urine Glucose (UA) Urine Ketones Urine Blood Urine Nitrite Urine Bilirubin Urine Urobilinogen Ur Leukocyte Esterase COVID-19 Eval Order SARS-CoV-2 (PCR) Medications Administered Insulin Human Regular 250 (units/ Sodium Chloride) 250 mls @ 6.4 mls/hr IV .Q24H PA; Protocol Stop: 11/03/20 07:44 Last Titration: 10/04/20 09:45 Dose: 7.7 units/hr, 7.7 mls/hr Documented by: [id number] Cosigned by: [id number] Admin: 10/04/20 08:11 Dose: 6.4 units/hr, 6.4 mls/hr Documented by: [id number] Cosigned by: [id number] Parenteral Electrolytes (Normosol-R) 1,000 mls @ 125 mls/hr IV .Q8H PA Stop: 11/03/20 07:44 Last Admin: 10/04/20 08:10 Dose: 125 mls/hr Documented by: [id number] Discontinued Medications Sodium Chloride (Nss 1000ml) 1,000 mls @ 999 mls/hr IV .Q1H1M PA Stop: 10/04/20 07:15 Last Infusion: 10/04/20 07:15 Dose: 0 mls/hr Documented by: [id number] Admin: 10/04/20 06:14 Dose: 999 mls/hr Documented by: [id number] Sodium Chloride (Nss 1000ml) 1,000 mls @ 999 mls/hr IV .Q1H1M PA Stop: 10/04/20 09:30 Last Infusion: 10/04/20 09:10 Dose: 0 mls/hr Documented by: [id number] Admin: 10/04/20 08:09 Dose: 999 mls/hr Documented by: [id number] Lactated Ringer's (Lr) 1,000 mls @ 999 mls/hr IV .Q1H1M ONE Stop: 10/04/20 09:59 Last Admin: 10/04/20 09:29 Dose: 999 mls/hr Documented by: [id number] Insulin Human Regular (Novolin-R Bolus From Bag) 6.4 units IV ONE ONE Stop: 10/04/20 08:16 Last Admin: 10/04/20 08:12 Dose: 6.4 units Documented by: [id number] Cosigned by: [id number] Miscellaneous (Insulin Protocol Goal Range ) 1 ea N/A ONE ONE Stop: 10/04/20 07:42 Last Admin: 10/04/20 10:02 Dose: Not Given Documented by: [id number] Ondansetron HCl (Ondansetron Inj 2 Mg/Ml 2 Ml Vial) 4 mg IV NOW STA Stop: 10/04/20 06:57 Last Admin: 10/04/20 07:12 Dose: 4 mg Documented by: [id number] Ondansetron HCl (Ondansetron Inj 2 Mg/Ml 2 Ml Vial) 4 mg IV NOW STA Stop: 10/04/20 08:17 Last Admin: 10/04/20 08:09 Dose: 4 mg Documented by: [id number] Sodium Bicarbonate (Sodium Bicarb 8.4% Inj 50 Meq/50 Ml Syr) 50 meq IV NOW STA Stop: 10/04/20 09:04 Last Admin: 10/04/20 09:25 Dose: 50 meq Documented by: [id number] Code Status & VTE Plan VTE Prophylaxis Plan VTE Prophylaxis will be ordered: Yes Supervising Physician Co-Signing Physician Notes Patient is 20-year-old male with past medical history of diabetes mellitus type 1 presented with nausea/vomiting. Patient reports he has not been using his insulin for the past 2 days due to some insurance issues. Patient denies any chest pain, fever, chills, diaphoresis, abdominal pain, diarrhea or dysuria he was short of breath on admission hemodynamically patient is doing okay does report that his mouth is very dry. DKA on admission Elevated anion gap metabolic acidosis H/O Diabetes mellitus type 1 Admit patient in critical care. Start patient on DKA protocol. I performed a history and physical examination of the patient on 10/04/20, including specifically H&P. I have discussed the patient's management with the advanced practitioner. Please refer to the JOLLY Malone note for the documented findings and plan of care. (1) DKA (diabetic ketoacidoses) Diabetes mellitus complication detail: without coma Diabetes mellitus type: type 1 Qualified Code(s): E10.10 - Type 1 diabetes mellitus with ketoacidosis without coma (2) Diabetes type I Diabetes mellitus complication detail: without coma Diabetes mellitus complication status: with ketoacidosis Qualified Code(s): E10.10 - Type 1 diabetes mellitus with ketoacidosis without coma
[2020-10-04] MEDS ORDERED: ICU PROTOCOL FOR HYPERGLYCEMIA PRN (10:56)
[2020-10-04] MEDS ORDERED: D5W AND 1/2NSS 1,000 ML IV SCH (11:15)
[2020-10-04] MEDS ORDERED: PHARMACY GLYCEMIC MGMT CONSULT PRN (11:21)
--- NOTE | 2020-10-04 11:52 | Pharmacy Report ---
Pharmacy Glycemic Short Note 2 - Date of Service October 04, 2020 - Glycemic Short BSG Results (Last 24 hours): 10/04/20 10/04/20 10/04/20 05:52 05:55 06:45 Glucose 620 H* POC Glucose 580 H* > 600 H* 10/04/20 10/04/20 10/04/20 08:22 09:12 10:44 Glucose 613 H* POC Glucose 423 H* 202 H 10/04/20 11:22 Glucose POC Glucose 220 H OUTPATIENT ANTIDIABETIC REGIMEN: * Humalog carb ratio 1 unit per 8 grams CHO and per sliding scale * Lantus 27 units SQ Daily <----- has not received x 2 months due to prior authorization requirements * A1c = ? ASSESSMENT: * Type 1 diabetic admitted to ICU for severe DKA. Patient reported no insulin use for 2 days due to insurance issue. He and his mother report he has been self managing with Humalog alone for 2 months due to the need for prior authorization for his Lantus Rx * Initial labs: GLU 620, AG 27, Bicarb 4, venous pH 7.09, Na 134 (corrected Na 144), K 5.8 * 2L NS + 1 L LR given in ED * Insulin infusion started per protocol: 0.1unit/kg IV bolus + 0.1unit/kg/hr infusion, goal BSG 150-250mg/dL initially * Chemistry ordered Q 4 hrs PLAN FOR INPATIENT GLYCEMIC CONTROL: * Check A1c * Continue IV insulin infusion: * Goal range: 150 - 250mg/dL * Once BSG falls to 250 or less, decrease infusion rate to 0.05units/kg/hr (3.2 units/hr) - then adjust per rate adjustment calculator * Once BSG falls to 250 or less, incorporate dextrose into maintenance IVFs (recommend D5 1/2 NS + 20mEq KCl) * Bolus insulin * NovoLog SQ may be given with meals if patient permitted to eat. Carb ratio will be calculated by IV insulin rate adjustment calculator * Consider transition to SQ basal/bolus regimen when: * BSG less than 200, AG less than 12, Bicarb > 15 and patient able to begin a diet PLAN FOR DISCHARGE: * To be determined
[2020-10-04] MEDS ORDERED: LACTATED RINGER'S 1,000 ML IV SCH ×2 (12:00→18:45)
--- NOTE | 2020-10-04 12:01 | Critical Care Consultation ---
Date of Consultation October 04, 2020 Assessment & Plan (1) DKA (diabetic ketoacidoses): Neurologic: Mildly lethargic related to severe DKA. Mentating well otherwise Pulmonary: Tachypneic secondary to metabolic acidosis. No hypoxia noted. Cardiovascular: Tachycardia improving as volume is being repleted. Gastrointestinal: Nausea and vomiting secondary to severe DKA. This is also improved. LFTs mildly elevated. Will trend. Normal alk phos. Lipase within normal limits. Renal: Gap acidosis is improving. He received 1 amp of bicarbonate. Continue aggressive IV fluids. Giving additional bolus of 1 L lactated Ringer's. Start LR at 200 mL an hour. Continue D5 half-normal saline at 200 mL an hour glucose is currently 200. Insulin drip was currently being managed by the pharmacist. Infectious disease: No infectious etiology at this time. Hematologic: No significant issues Endocrine: DKA management as above. F/E/N: N.p.o. currently. Peribiliary is in place. VTE prophylaxis: Lovenox CODE STATUS: Full Family at bedside: Mother updated at bedside Disposition: Remain in ICU I have personally spent 35 minutes of critical care time in the direct management of this patient. This is a life/limb threatening event. This includes time spent evaluating patient, direct bedside care, chart review, placing orders, interpretation of diagnostic studies, discussion with consultants, patient, and family members, as well as other required patient management activities. This time is exclusive of all separately billable procedures, and teaching time and separate from and in addition to any other critical care service time. Thank you for allowing us to participate in the care of this patient. History of Present Illness Reason for Consultation: Severe DKA Attending Physician: Jennifer Balderas MD History of Present Illness 20-year-old male with a history of type 1 diabetes mellitus presented to the ER due to nausea and vomiting with shortness of breath. He has a long history of diabetes mellitus diagnosed 9 years old. More last 2 days he has been out of his insulin due to the issues with his insurance. His last A1c was 8.9. In the ER his glucose was over 600. He had severe anion gap acidosis. He was started on insulin drip and received 3 L of IV fluids. Patient is sleepy but able to give some history. His mother is currently at bedside as well. He denies any infectious symptoms such as cough, fever, UTI symptoms or cellulitis. Denies any significant abdominal pain at present. He does have some mild right upper quadrant pain which he relates to the frequent vomiting. He was vomiting throughout the majority of the night last night. He denies any diarrhea. He is feeling better now. His mouth is very dry. He is requesting fluids by mouth. The patient's mother notes the last time he was in the hospital was when he was 4 years old. He denies any drug use. He is currently on insulin drip and D5/half-normal saline at 200 mL an hour. We are also adding lactated Ringer's at 200 mL an hour. We will give an additional 1 L bolus of fluid over 1 hour with lactated Ringer's. Allergies Allergy/AdvReac Type Severity Reaction Status Date / Time No Known Allergies Allergy Mild Verified 10/04/20 08:02 Home Medications Medication Instructions Recorded Confirmed Type insulin lispro [Humalog U-100 See Rx Instructions .ROUTE .COMPLEX 11/16/19 10/04/20 History Insulin] Patient History Medical History Diabetes type I Surgical History History of endoscopy Family History Grandfather (Maternal) Heart disease Hypertension Mother Multiple sclerosis Social History Smoking Status: Never smoker Tobacco Type: Smokeless Tobacco (Dip or Chew) Hx Alcohol Use: Yes (2 drinks/month) Preferred Language: Gabonese current occupational status: employed Feels Safe at Home: Yes Review of Systems Review of Systems: All systems reviewed & are unremarkable except as noted in HPI & below Physical Exam Constitutional: Thin appearing. Mild distress. Eyes: PERRL, conjunctivae normal, anicteric sclerae ENMT: external ear and nose normal, oropharynx normal Respiratory: [place] respirations noted. No wheezing. Cardiovascular: Rate/Rhythm: + tachycardic Gastrointestinal (Abdomen): normal bowel sounds, soft, nontender, no hepatosplenomegaly Musculoskeletal: no cyanosis or clubbing, extremities motor strength 5/5 Skin: no rashes, warm and dry Neurologic: PERRL, EOMI, accommodation nl, no face palsy, no dysarthria Psychiatric: A+Ox3, euthymic affect Results & Data Results & Data ([facility]) Vital Signs (Past 12 Hours) Vital Signs Temp Pulse Pulse Resp BP BP Pulse Ox 10/04/20 11:40 127 H 33 H 109/73 100 10/04/20 10:40 131 H 25 H 122/78 100 10/04/20 10:21 97.9 F 146 H 28 H 114/91 100 10/04/20 10:00 146 H 28 H 114/91 100 10/04/20 09:30 156 H 30 H 132/94 100 10/04/20 09:00 141 H 31 H 152/84 H 100 10/04/20 08:30 141 H 28 H 148/102 H 100 10/04/20 08:27 140 H 24 154/86 H 10/04/20 08:22 142 H 27 H 153/90 H 100 10/04/20 08:01 150 H 23 10/04/20 07:00 98 10/04/20 06:36 137 H 28 H 140/72 98 10/04/20 06:30 134 H 26 H 99 10/04/20 06:15 131 H 22 99 10/04/20 06:00 97.9 F 135 H 131 H 28 H 150/101 H 98 10/04/20 05:51 125 H 28 H 100 10/04/20 05:49 97.9 F 131 H 22 150/101 H 98 10/04/20 05:48 126 H 26 H 150/101 H 99 vital signs, labs and imaging reviewed Coding Level of Care Code Critical Care 1st 30-74 mins Diagnoses DKA (diabetic ketoacidoses) E11.10 Time Spent (min) 35
[2020-10-04] MEDS ORDERED: CARBOHYDRATES FOR HYPOGLYCEMIA PO PRN (12:15)
[2020-10-04] MEDS ORDERED: GLUCOSE 10 TABS/TUBE PO PRN (12:15)
[2020-10-04] MEDS ORDERED: GLUCOSE 40% GEL 15 GM TUBE PO PRN (12:15)
[2020-10-04] MEDS ORDERED: DEXTROSE 50% 50 ML SYRINGE IV PRN ×2 (12:15→14:51)
[2020-10-04] MEDS ORDERED: GLUCAGON FOR INJ 1 MG VIAL IM PRN (12:15)
[2020-10-04 12:20] LABS: BUN Creatinine Ratio 14.3 (10-20); Calcium 8.3 mg/dl (8.5-10.1); Creatinine Clr Calc Pharmacy 76.1 ml/min; Est GFR (African American) 89.6 ml/min; Est GFR (Non-African American) 77.3 ml/min; Phosphorus 2.6 mg/dl (2.5-4.9)
[2020-10-04] MEDS: INSULIN ASPART 100 UNITS/ML 3 ML PEN SC SCH ×3 (13:17→19:37)
[2020-10-04 13:46] LABS: Estimated Average Glucose 223 mg/dl; Hemoglobin A1C 9.4 % (4.5-5.6)
[2020-10-04] MEDS: D5W AND 1/2NSS + 20MEQ KCL 20 MEQ/1,000 ML BAG IV SCH ×3 (14:17→22:28)
--- NOTE | 2020-10-04 15:11 | Electrocardiogram Report ---
Test Reason : Blood Pressure : / mmHG Vent. Rate : 131 BPM Atrial Rate : 131 BPM P-R Int : 138 ms QRS Dur : 086 ms QT Int : 316 ms P-R-T Axes : 070 063 031 degrees QTc Int : 466 ms Sinus tachycardia Otherwise normal ECG No previous ECGs available Confirmed by Gene Aguilar ([id number]) on 10/04/2020 3:11:44 PM Referred By: REFERRED SELF Confirmed By:Alfonso Aguilar
[2020-10-04 16:04] LABS: BUN Creatinine Ratio 11.1 (10-20); Calcium 7.4 mg/dl (8.5-10.1); Creatinine Clr Calc Pharmacy 89.8 ml/min; Est GFR (African American) 111.9 ml/min; Est GFR (Non-African American) 96.5 ml/min; Phosphorus 2.4 mg/dl (2.5-4.9)
[2020-10-04 17:50] LABS: Potassium 3.9 mmol/L (3.5-5.1)
[2020-10-04 20:42] LABS: BUN Creatinine Ratio 8.7 (10-20); Calcium 9.2 mg/dl (8.5-10.1); Creatinine Clr Calc Pharmacy 74.7 ml/min; Est GFR (African American) 89.6 ml/min; Est GFR (Non-African American) 77.3 ml/min; Phosphorus 2.6 mg/dl (2.5-4.9); Potassium 4.7 mmol/L (3.5-5.1)
[2020-10-05 00:28] LABS: BUN Creatinine Ratio 6.3 (10-20); Calcium 8.1 mg/dl (8.5-10.1); Creatinine Clr Calc Pharmacy 80.9 ml/min; Est GFR (African American) 98.6 ml/min; Est GFR (Non-African American) 85.1 ml/min; Potassium 4.1 mmol/L (3.5-5.1)
[2020-10-05 00:29] LABS: Phosphorus 2.3 mg/dl (2.5-4.9)
[2020-10-05] MEDS: D5W AND 1/2NSS + 20MEQ KCL 20 MEQ/1,000 ML BAG IV SCH ×3 (03:32→11:06)
[2020-10-05 04:58] LABS: BUN Creatinine Ratio 5.4 (10-20); Calcium 8.1 mg/dl (8.5-10.1); Creatinine Clr Calc Pharmacy 85.8 ml/min; Est GFR (Non-African American) 91.4 ml/min
[2020-10-05 05:00] LABS: Phosphorus 1.7 mg/dl (2.5-4.9)
[2020-10-05 06:29] LABS: Basophils # (auto) 0.01 K/uL (0-0.2); Basophils % (auto) 0.1 %; Eosinophils # (auto) 0.04 K/uL (0-0.5); Eosinophils % (auto) 0.4 %; Hematocrit (blood only) 39.2 % (42-52); Hemoglobin 13.3 g/dL (14.0-18.0); Immature Granulocytes # (auto) 0.02 K/uL (0.00-0.02); Immature Granulocytes % (auto) 0.2 %; Lymphocytes # (auto) 3.68 K/uL (1.2-3.4); Lymphocytes % (auto) 33.6 %; Mean Corpuscular Hgb Conc 33.9 g/dL (32-36); Mean Corpuscular Volume 100.3 fL (80-100); Mean Platelet Volume 10.4 fL (7.4-10.4); Monocytes # (auto) 1.16 K/uL (0.11-0.59); Monocytes % (auto) 10.6 %; Neutrophils # (auto) 6.04 K/uL (1.4-6.5); Neutrophils % (auto) 55.1 %; Platelet Count 328 K/uL (130-400); RDW Coefficient of Variation 13.4 % (11.5-14.5); RDW Standard Deviation 48.5 fL (36.4-46.3); Red Blood Count 3.91 M/uL (4.7-6.1); White Blood Count 10.95 K/uL (4.8-10.8)
[2020-10-05] MEDS ORDERED: INSULIN PROTOCOL GOAL RANGE ONE (07:10)
[2020-10-05] MEDS: INSULIN ASPART 100 UNITS/ML 3 ML PEN SC SCH ×3 (08:36→11:46)
[2020-10-05] MEDS ORDERED: ENOXAPARIN INJ 40 MG/0.4 ML SYR SQ SCH (09:00)
[2020-10-05] MEDS ORDERED: INSULIN GLARGINE SOLOSTAR 100 UNITS/ML 3 ML PEN SC ONE (10:00)
[2020-10-05] MEDS ORDERED: SODIUM PHOSPHATE 21 MMOL in SODIUM CHLORIDE 0.9% 500 ML IV ONE ×2 (10:00→12:15)
[2020-10-05 10:25] LABS: Calcium 8.4 mg/dl (8.5-10.1); Creatinine Clr Calc Pharmacy 83.6 ml/min; Est GFR (African American) 102.7 ml/min; Est GFR (Non-African American) 88.6 ml/min; Potassium 4.2 mmol/L (3.5-5.1)
--- NOTE | 2020-10-05 10:29 | Critical Care Progress Note ---
Date of Service October 05, 2020 Assessment & Plan (1) DKA (diabetic ketoacidoses): Neurologic: No issues at present. Pulmonary: No issues at present. Cardiovascular: No issues. Gastrointestinal: LFTs mildly elevated yesterday. We will repeat LFTs today. Renal: DKA resolving. We will give her long-acting insulin. Pharmacy assisting. Currently on D5 and half-normal saline. Continue crossover with IV insulin. Infectious disease: No infectious etiology at this time. Hematologic: No significant issues Endocrine: DKA management as above. F/E/N: Tolerating diet. VTE prophylaxis: Lovenox CODE STATUS: Full Stable for transfer to the floor. Admission and Anticipated Discharge Date Admission Date: October 04, 2020 Subjective Patient seen and examined this morning. He is doing quite well. Tolerating his diet. Urinating frequently. No dizziness or nausea. No abdominal pain. Remains on a low-dose of insulin drip. Currently on D5 half-normal saline at 150 mL an hour. Review of Systems Review of Systems: All systems reviewed & are unremarkable except as noted in HPI & below Physical Exam Constitutional: well developed Eyes: PERRL, conjunctivae normal, anicteric sclerae ENMT: external ear and nose normal, oropharynx normal Respiratory: normal respiratory effort, lungs clear to auscultation Cardiovascular: RRR, no murmur, no edema Gastrointestinal (Abdomen): normal bowel sounds, soft, nontender, no hepatosplenomegaly Musculoskeletal: no cyanosis or clubbing, extremities motor strength 5/5 Skin: no rashes, warm and dry Neurologic: PERRL, EOMI, accommodation nl, no face palsy, no dysarthria Psychiatric: A+Ox3, euthymic affect Results & Data Results & Data ([facility]) Vital Signs (Past 12 Hours) Vital Signs Temp Pulse Resp BP Pulse Ox 10/05/20 08:00 82 10/05/20 06:00 91 H 22 98 10/05/20 05:40 93 H 20 105/69 98 10/05/20 05:00 90 20 98 10/05/20 04:40 93 H 19 111/63 98 10/05/20 04:16 98.1 F 10/05/20 04:00 84 18 98 10/05/20 03:40 84 18 96/51 L 97 10/05/20 02:40 89 19 114/66 98 10/05/20 02:00 101 H 20 98 10/05/20 01:40 84 20 96/47 L 98 10/05/20 00:54 90 19 92/47 L 97 10/05/20 00:41 97.9 F 10/05/20 00:40 84 18 91/47 L 98 10/05/20 00:00 94 H 21 100 10/04/20 23:40 86 18 115/67 100 10/04/20 23:10 98 H 10/04/20 23:00 96 H 22 99 10/04/20 22:40 96 H 23 113/70 99 vital signs, labs and imaging reviewed Coding Level of Care Code 32524 Subseq [facility] 3 Diagnoses DKA (diabetic ketoacidoses) E11.10
[2020-10-05 11:07] LABS: Bilirubin Direct 0.2 mg/dl (0-0.2); Bilirubin,Total 0.6 mg/dl (0.2-1); Total Protein 6.1 gm/dl (6.4-8.2)
--- NOTE | 2020-10-05 11:32 | Pharmacy Report ---
Pharmacy Glycemic Short Note 2 - Date of Service October 05, 2020 - Glycemic Short BSG Results (Last 24 hours): 10/04/20 10/04/20 10/04/20 11:22 11:41 12:27 Glucose 221 H POC Glucose 220 H 173 H 10/04/20 10/04/20 10/04/20 13:30 14:38 15:01 Glucose POC Glucose 180 H 113 H 149 H 10/04/20 10/04/20 10/04/20 15:05 15:43 16:42 Glucose 158 H POC Glucose 160 H 278 H 10/04/20 10/04/20 10/04/20 17:45 18:40 19:31 Glucose POC Glucose 399 H* 360 H* 255 H 10/04/20 10/04/20 10/04/20 19:48 20:27 21:28 Glucose 232 H POC Glucose 236 H 222 H 10/04/20 10/04/20 10/05/20 22:29 23:56 00:35 Glucose 169 H POC Glucose 227 H 173 H 10/05/20 10/05/20 10/05/20 02:28 04:14 04:18 Glucose 188 H POC Glucose 192 H 181 H 10/05/20 10/05/20 10/05/20 08:30 09:57 11:15 Glucose 254 H POC Glucose 188 H 212 H OUTPATIENT ANTIDIABETIC REGIMEN: * Humalog carb ratio 1 unit per 8 grams CHO and per sliding scale * Lantus 27 units SQ Daily <----- has not received x 2 months due to prior authorization requirements * A1c = 9.4% 10/04/20 ASSESSMENT: 10/05 * AG acidosis has improved greatly over the last 24 hrs. AG less than 12 and Bicarb > 15 on last chemistry and patient is tolerating a diet. BSGs also with goal range this AM and was less than 200 prior to eating breakfast. * Patient meets criteria to transition to SQ regimen at this time. Insulin drip has been running at ~0.9units/hr without much titration for many hours * Will being Lantus in the dose patient reported as his outpt dosage * Novolog dosing will be based upon CR reported by patient and an anticipated total daily insulin requirement of ~50-55 units. Additional BSG checks and coverage will be added overnight due to likelihood he will remain more insulin resistant in the first 24 hrs following resolution of DKA. 10/04 * Type 1 diabetic admitted to ICU for severe DKA. Patient reported no insulin use for 2 days due to insurance issue. He and his mother report he has been self managing with Humalog alone for 2 months due to the need for prior authorization for his Lantus Rx * Initial labs: GLU 620, AG 27, Bicarb 4, venous pH 7.09, Na 134 (corrected Na 144), K 5.8 * 2L NS + 1 L LR given in ED * Insulin infusion started per protocol: 0.1unit/kg IV bolus + 0.1unit/kg/hr infusion, goal BSG 150-250mg/dL initially * Chemistry ordered Q 4 hrs PLAN FOR INPATIENT GLYCEMIC CONTROL: * Lantus 24 units SQ once daily * Discontinue the insulin drip after at least 2 hours of overlap with 1st basal SQ dose * Remove dextrose from IVF's now that patient tolerating a diet and AG closed * Bolus insulin: Novolog SQ ACHS and at 0000 + 0400 tonight * Goal: 110-140 mg/dL * Correction factor: 35mg/dL/unit * Carb ratio: 1 unit per 8gm CHO PLAN FOR DISCHARGE: * To be determined, but at this time the plan is to have patient discharged on once daily basal SQ insulin (Lantus if covered by insurance). Patient may be discharged with Lantus pen that was used during this admission in order to buy him time until prior auth can be obtained for this insulin. healthcare educator was consulted today to f/u with patient to help assist w/ discharge planning and educate patient on backup plan if unable to obtain basal insulin.
[2020-10-05] MEDS: INSULIN REGULAR 250 UNITS in SODIUM CHLORIDE 0.9% 247.5 ML IV SCH (11:37)
[2020-10-05] MEDS ORDERED: SODIUM PHOSPHATE 3 MMOL/1 ML INFUSION IV STA (11:50)
[2020-10-05] MEDS ORDERED: [UNRECOGNIZED DRUG - REMARK] ONE (12:45)
[2020-10-05 16:23] LABS: BUN Creatinine Ratio 11.2 (10-20); Blood Urea Nitrogen 8 mg/dl (7-18); Calcium 8.2 mg/dl (8.5-10.1); Carbon Dioxide 18 mmol/L (21-32); Chloride 109 mmol/L (98-107); Creatinine Clr Calc Pharmacy 132.2 ml/min; Est GFR (African American) > 150.0 ml/min; Est GFR (Non-African American) 131.9 ml/min; Glucose 168 mg/dl (70-99); Sodium 139 mmol/L (136-145)
[2020-10-05] MEDS ORDERED: INSULIN ASPART 100 UNITS/ML 3 ML PEN SC SCH (16:30)
--- NOTE | 2020-10-05 16:38 | Discharge Summary ---
Date of Service October 05, 2020 Admission HPI Per Admitting Provider This is a 20 y/o male with a PMH of type 1 DM who presented to the ED this morning via EMS after he developed nausea, vomiting, and shortness breath overnight as well as noted rising blood sugars. History obtained from the patient, his mother at the bedside, and review of the medical record. Pt was diagnosed with Type 1 DM around the age of 1. At least one prior episode of DKA requiring hospitalization around the age of 6 or 7. He was using an insulin pump for management previously but it has been malfunctioning recently so he has been using traditional injection therapy, primarily with short-acting insulin fr om his description. He was previously on Lantus 27 units QHS prior to using the pump but he has not resumed this since the pump stopped working. Over the past few days, his PCP office has been working with glycemic pharmacy to get a prior authorization for his insulin therapy. However, he reports that he ran out of insulin completely with no insulin use for the past two days. Yesterday, he saw his PCP for a routine physical and had no specific complaints. Labs yesterday afternoon showed a glucose of 134, BUN 21, creatinine 0.8, and A1c of 8.9. He reports feeling okay last evening. Overnight, he developed nausea, vomiting, shortness of breath, polydipsia, and fatigue. He woke his mother up around 4:50 am to tell her that he was ill and needed to go to the ED. Glucose at that time was around 300. By the time EMS arrived, sugar was in the 380s, and on initial presentation in the ED sugar was >600. He received one liter of NSS and unspecified dose of Zofran en route to the ED. In the ED, he continued with N/V so he was given Zofran 4 mg x 2 more doses with some improvement. He has since received an initial 2 L of NSS in the ED and had Normosol-R running at 125 ml/hr. He currently feels short of breath ("like I need to breathe fast") but denies chest tightness or chest pain. +fatigue, palpitations. Nausea has improved and he was eating ice chips without worsening. He reports feeling "very thirsty" at present but not hungry. Denies TIMMONS, dizziness, visual changes. Admission Exam Per Admitting Provider Constitutional: WD/WN, vitals as above + ill appearing; no altered mental status Eyes: PERRL, conjunctivae normal, anicteric sclerae ENMT: external ear and nose normal, oropharynx normal Neck: trachea midline Respiratory: + tachypneic Auscultation: lungs clear to auscultation bilaterally; no rales, no rhonchi and no wheezes Cardiovascular: Rate/Rhythm: regular rhythm and + tachycardic Heart Sounds: no gallop, no murmur and no cardiac rub Gastrointestinal (Abdomen): Inspection/Auscultation: normal bowel sounds; abdomen not distended Percussion/Palpation: abdomen soft; abdomen nontender Musculoskeletal: Head/Neck/Chest: normocephalic, head atraumatic and neck supple Skin: no rashes, warm and dry Neurologic: moves all extremities; no focal motor deficits and not confused Psychiatric: Orientation: alert and oriented x 3 Affect: + anxious affect Principal Diagnosis DKA Discharge Exam General: A&Ox3 HENT: NCAT, MMM, EOMI Eyes: PERRLA Neck: Supple, normal range of motion CVS: normal rate and rhythm Resp: b/l good breath sounds Abdomen: Soft, ND/NT, +BS Extremities: No c/c/e Neuro: face symmetric, no focal deficit Skin: warm and dry, no rashes/lesions/errythema MSK: normal ROM, no joint swelling/erythema Discharge Data Allergies Allergy/AdvReac Type Severity Reaction Status Date / Time No Known Allergies Allergy Mild Verified 10/04/20 08:02 Consultations 10/04/20 08:12 ED Decision to Admit Stat 10/04/20 09:24 Consult Biomedical Equipment Specialist Routine Diabetes Follow up Diabetes Follow-up Needed for HgbA1c >9% Hospital Course (1) DKA (diabetic ketoacidoses): Patient is a 20-year-old male with past medical history of diabetes mellitus type 1 insulin-dependent presented with DKA and was admitted under critical care. Patient was a started on DKA protocol. His hypoglycemia resolved. Anion gap closed. Patient was resuscitated with IV fluids the day of discharge patient was on his [employer] insulin. clinical informatics educator evaluated the patient. On the day of discharge patient was hemodynamically stable did not have any major complaints. Patient was discharged on 27 units of Lantus daily, his [employer] carb coverage 8:1 g and insulin sliding scale. Patient was discharged in stable condition. (2) Diabetes type I: Patient will need to follow-up with endocrinology as an outpatient. (3) Hepatomegaly: Being monitored as an outpatient - LFTs are slightly elevated from baseline. Will continue to monitor. Total Time Total Time Spent Total Time Spent (In Minutes): 35 Discharge Plan Discharge Items Patient Disposition: Home - Self-Care Reason For Visit: DKA Discharge Diagnosis: DKA Condition on Discharge: Good Activity: Resume your previous activity Non-emergency contact: Primary Care Provider Call non-emergency contact if: your symptoms worsen Follow-up/Referrals: Kashmir Herr, [Primary Care Provider] - (Date & Time 10/11/2020 11:20 AM Provider Brandi Aquino MD Department [facility] ) Diet: Carb Consistent or DM2 Addtl Attending Provider Instructions: Follow-up with your primary care physician and wet pour supervisor as an outpatient. Addtl Tester Equipment Provider Instructions: DIABETES - Because you have type 1 diabetes, you will always need basal (Lantus/Basalgar) insulin to cover the sugar your body makes and bolus (Novolog/Humalog) insulin to cover the carbs you eat every day to prevent diabetic ketoacidosis and hospital admission. - If you ever have trouble getting your insulin in the future, ask the pharmacist what insulin would be covered instead. Provider can then send a prescription for same without prior authorization. - Be mindful, insurance coverage can always change every year on April 20. Try to have extra insulin on hand and renew insulin 1-2 weeks ahead of time, if able, so that you have additional time to get another prescription if needed. - May consider going back to your insulin pump. Since you live life on the go, this may be a better option even without the continuous glucose monitor. Can call [employer] and try to get another transmitter. - A referral was put in for follow-up with the [facility] diabetes clinic. If you have any additional questions, please call our diabetes office any time at [phone]. Take Care!! Pending Studies at Discharge: No Stand-Alone Forms: My [employer], Smoking Cessation Medications and DC Order Prescriptions: New Lantus U-100 Insulin 100 unit/mL solution 27 unit subcut DAILY 30 Days Qty: 10 RF: 0 insulin aspart U-100 [Novolog U-100 Insulin aspart] 100 unit/mL solution 1 unit subcut ACHS Qty: 10 RF: 0 (DME) insulin syringe-needle U-100 0.3 mL 30 gauge x 15/64" syringe See Rx Instructions .ROUTE .MEDSUPPLY Qty: 100 RF: 0 Discontinued insulin lispro [Humalog U-100 Insulin] 100 unit/mL solution See Rx Instructions .ROUTE .COMPLEX RF: 0 Discharge Orders: Discharge Order (Routine); Ordered 10/05/20 Ordered By: Jennifer Balderas Admission Data Admit Date/Time: 10/04/20 09:24 Attending Provider: Jennifer Balderas Admit Provider: Jennifer Balderas Primary Care Provider: Kashmir Herr Other Providers: Rah De Leon Muhammad J. Other Interventions: Discharge Summary Assessment (RN) Last Done: 10/05/20 15:07
[2020-10-06] MEDS ORDERED: INSULIN ASPART 100 UNITS/ML 3 ML PEN SC SCH
[2020-10-06] MEDS ORDERED: INSULIN GLARGINE SOLOSTAR 100 UNITS/ML 3 ML PEN SC SCH (09:00)
== END 2020-10-05 16:38 | disposition home or self-care (01) | DRG 639 ==
LOC: ED 05:43 → 1E 09:24